=== PATIENT | female | born 1965 ===

== ENCOUNTER 2020-12-22 08:11 | Outpatient (REF) | payer OTHER, SELFPAY ==
[2020-12-22 09:13] LABS: Hematocrit 47.3 % (37-47); Hemoglobin 15.1 g/dl (12.0-16.0); Mean Corpuscular HGB Conc 31.9 g/dl (31.0-35.0); Mean Corpuscular Hemoglobin 27.6 pg (27.0-33.0); Mean Corpuscular Volume 86.5 fL (80-98); Mean Platelet Volume 10.8 fL (9.4-12.3); Platelet Count 220 X10*3/uL (160-400); Red Blood Count 5.47 X10*6/uL (4.20-5.50); Red Cell Distribution Width 12.7 % (11.0-16.0); White Blood Count 4.5 X10*3/uL (4.8-10.8)
[2020-12-22 09:27] LABS: Alanine Aminotransferase 21 U/L (0-31); Albumin Level 4.2 g/dL (3.5-5.0); Alkaline Phosphatase 84 U/L (39-117); Anion Gap 12 (12-20); Aspartate Amino Transferase 21 U/L (5-31); Bilirubin Total 0.5 mg/dL (0.0-1.0); Blood Urea Nitrogen 15 mg/dL (9-16); Calcium 9.6 mg/dL (8.4-10.2); Carbon Dioxide 25 mmol/L (22-29); Chloride 108 mmol/L (96-108); Cholesterol 253 mg/dL; Estimated Glomerular Filt Rate > 60; Glucose Fasting 93 mg/dL (60-99); HDL Cholesterol 67 mg/dL; LDL Cholesterol Calculated 173 mg/dl; Potassium 4.6 mmol/L (3.3-5.1); Sodium 140 mmol/L (135-145); Total Protein 6.9 g/dL (6.5-8.0); Triglycerides 66 mg/dL
[2020-12-22 09:51] LABS: TSH reflex Free T4 0.95 uIU/mL (0.32-4.0)
== END 2020-12-22 08:12 | disposition home or self-care (01) ==
LOC: HO.LAB 08:11
PROVIDERS: PCP Physician Assistant; Visit Provider Physician Assistant
DX: E78.2 Mixed hyperlipidemia (principal); I10 Essential (primary) hypertension
CPT/HCPCS: 36415; 80053; 80061; 84443; 85027

== ENCOUNTER → 2021-01-15 07:58 | Outpatient (BNVA) | payer OTHER, SELFPAY | PROVIDERS: PCP Physician Assistant; Visit Provider Advanced Practice Midwife ==

== ENCOUNTER 2021-04-09 08:44 | Outpatient (REF) | payer OTHER, SELFPAY ==
--- NOTE | ~2021-04-09 | MM_ITS ---
EXAMINATION: MM SCREENING DIGITAL BREAST TOMOSYNTHESIS, BILATERAL CLINICAL INFORMATION: Screening. Asymptomatic. The lifetime risk of breast cancer based on the Tyrer-Cuzick Model is 5%. COMPARISON: Mammography: 12/31/2019, 09/21/2018, 05/06/2016 TECHNIQUE: Digital breast tomosynthesis is performed in both the craniocaudal and mediolateral oblique views along with computer-aided detection (CAD). Synthesized 2D images are generated from the tomosynthesis. FINDINGS: There are scattered areas of fibroglandular density (ACR BI-RADS breast composition Category b). There are no significant masses, abnormal calcifications, or other abnormalities. MM/MM tomosynthesis screening BI IMPRESSION: No mammographic evidence of malignancy. ASSESSMENT: BI-RADS 1: Negative RECOMMENDATION: Routine annual mammography screening. This patient's information was entered into a reminder system with a target due date for their next mammogram.
== END 2021-04-09 08:45 | disposition home or self-care (01) ==
LOC: HO.MAMMO 08:44
PROVIDERS: Visit Provider Physician Assistant
DX: Z12.31 Encounter for screening mammogram for malignant neoplasm of breast (principal)
CPT/HCPCS: 77063; 77067

== ENCOUNTER → 2022-05-07 13:36 | Outpatient (BNVA) | payer OTHER, SELFPAY | PROVIDERS: PCP Physician Assistant; Visit Provider Advanced Practice Midwife | DX: Z13.89 Encounter for screening for other disorder (principal) ==

== ENCOUNTER 2022-05-23 13:38 | Outpatient (REF) | payer OTHER, SELFPAY ==
--- NOTE | ~2022-05-23 | MM_ITS ---
EXAMINATION: MM DIAGNOSTIC DIGITAL BREAST TOMOSYNTHESIS, BILATERAL TARGETED LEFT BREAST ULTRASOUND CLINICAL INFORMATION: A lump felt by ordering physician in the left breast 5 o'clock position. The lifetime risk of breast cancer based on the Tyrer-Cuzick Model is 5.8%. COMPARISON: Mammography: 04/09/2021 and studies dating back to 10/13/2013. TECHNIQUE: Digital breast tomosynthesis is performed in both the craniocaudal and mediolateral oblique views along with computer-aided detection (CAD). Synthesized 2D images are generated from the tomosynthesis. Targeted left breast ultrasound. FINDINGS: There are scattered areas of fibroglandular density (ACR BI-RADS breast composition Category b). There are no significant masses, abnormal calcifications, or other abnormalities. Targeted left breast ultrasound did not demonstrate any abnormal cystic or solid mass. No region of abnormal distal sound shadowing was appreciated. No edematous change within the parenchyma noted. Results are discussed with the patient at time of visit. MM/MM tomosynthesis diagnostic BI IMPRESSION: No specific mammographic or ultrasound findings to suggest malignancy. ASSESSMENT: BI-RADS 1: Negative. RECOMMENDATION: Routine annual mammography screening. This patient's information was entered into a reminder system with a target due date for their next mammogram.
== END 2022-05-23 13:39 | disposition home or self-care (01) ==
LOC: HO.MAMMO 13:38
PROVIDERS: Visit Provider Advanced Practice Midwife
DX: N63.23 Unspecified lump in the left breast, lower outer quadrant (principal)
CPT/HCPCS: 76642; 77062; 77066

== ENCOUNTER 2022-10-04 13:40 | Outpatient (REF) | payer OTHER, SELFPAY ==
[2022-10-05 10:29] LABS: BV Int Neg Control Negative (Negative); BV Int Pos Control Positive (Positive)
== END 2022-10-04 13:41 | disposition home or self-care (01) ==
LOC: HO.LNP 13:40
PROVIDERS: PCP Physician Assistant; Visit Provider Advanced Practice Midwife
DX: N89.8 Other specified noninflammatory disorders of vagina (principal)
CPT/HCPCS: 87480; 87510; 87660

== ENCOUNTER 2022-12-09 11:23 | Outpatient (AMB) | payer OTHER, SELFPAY ==
--- NOTE | 2022-12-09 11:29 | A.OFFPC_ITS ---
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 Accompanied by: Self / Same As Patient Allergies carrot [CARROT] Allergy (Unknown, Verified 12/09/22 11:49) DIFF BREATHING, ITCHY, THROAT FEELS TIGHT Medication List - Last Reconciled 12/09/22 by Virgilio Carver PA-C cholecalciferol (vitamin D3) 25 mcg PO DAILY magnesium oxide 400 mg PO DAILY Tobacco use date assessed: 12/09/22 Dental Screening Dental Screen Date: 12/09/22 Did you have a dental visit in the last 12 months?: Yes Did you have a dental problem in the last 6 months where you did not have access to dental care?: No Was dental information given to patient?: Patient has dentist HPI Annual PE HPI Details patient is a 57-year-old female here today for annual physical.? Patient's past medical history significant for hyperlipidemia. Concern--> reports having a skin lump over her upper back over the last couple of years. She denies any drainage or pain. She would like removal of this skin lump. .. HLD : HAs been working ?on reducing her high cholesterol foods in being more physically active.? Patient interested in starting medication will like to continue lifestyle modifications to reduce her cholesterol. ? Mammogram:? done in May 2022, BI-RADS 1 ?colonoscopy:? done in 2015 which was normal repeat in 10 years Vaccine: Needs Tdap though declines,? needs shingles though declines, needs COVID vaccine though declines Laboratory Tests 12/22/20 08:27 Cholesterol 253 LDL Cholesterol, C alc 173 .. PFSH Medical History Myopia Surgical History H/O: hysterectomy Hx of section Family History Father Lung cancer Son Osteosarcoma Social History (Updated 12/09/22 @ 11:52 by Virgilio Carver PA-C) Household Members: Spouse Housing: Apartment Alcohol intake: never Patient Tobacco Use Status: Never used Tobacco e-Cigarette/Vaping Use: Never Used Second Hand Smoke Exposure: No service: No Current occupational status: employed Current occupation: [employer] Sexual orientation: Straight/Heterosexual Gender identity: Female Cognitive needs: No Hearing needs: No Vision needs: Yes Questionnaire PHQ-9 Over the last 2 weeks, how often have you been bothered by any of the following problems? 1. Little interest or pleasure in doing things: not at all 2. Feeling down, depressed, or hopeless: not at all 3. Trouble falling or staying asleep, or sleeping too much: not at all 4. Feeling tired or having little energy: not at all 5. Poor appetite or overeating: not at all 6. Feeling bad about yourself - or that you are a failure or have let yourself or your family down: not at all 7. Trouble concentrating on things, such as reading the newspaper or watching television: not at all 8. Moving or speaking so slowly that other people could have noticed. Or the opposite - being so fidgety or restless that you have been moving around a lot more than usual: not at all 9. Thoughts that you would be better off or of hurting yourself in some way: not at all Total score: 0 Depression Screening Interpretation: Negative 68482 - PHQ-9 Billing: Yes Source: Developed by Drs. Kirill Bonner, Giselle Greer, Sebastian mims nd colleagues, with an educational chandana from [employer]. Thrive Questionnaire Date Thrive assessed: 12/09/22 I am a: Patient What is your living situation today?: I have a steady place to live Within the past 12 months, did the food you bought not last and you didn't have the money to get more?: Never true Within the past 12 months, did you worry whether your food would run out before you got money to buy more?: Never true Do you have trouble paying for medicines?: No Do you have trouble getting transportation to medical appointments?: No Do you have trouble paying your heating and electricity bill?: No Do you have trouble taking care of your child, family member or friend?: No Do you have trouble with day-to-day activities such as bathing, preparing meals, shopping, managing finances, etc.?: No Are you currently unemployed and looking for a job?: No Are you interested in more education?: No Please select the resources that you would like help with: None Currently or been in a relationship where the following occur: no concerns reported RUBY-7 AMB Questionnaire RUBY-7 Date RUBY - 7 assessed: 12/09/22 Feeling nervous, anxious, or on edge: 0 = Not at all Not being able to stop or control worryin = Not at all Worrying too much about different things: 0 = Not at all Trouble relaxin = Not at all Being so restless that it is hard to sit still: 0 = Not at all Becoming easily annoyed or irritable: 0 = Not at all Feeling afraid as if something awful might happen: 0 = Not at all Total RUBY-7 score (0-4 normal; 5-9 mild; 10-14 moderate; 15-21 severe): 0 Source: Developed by Drs. Kirill Bonner, Giselle Greer, Sebastian Terrell and colleagues, with an educational chandana from [employer]. RUBY-7 Assessment Billing RUBY-7 Assessment Tool: RUBY-7 Assessment 67559 Review of Systems Const Denies body aches, Denies chills, Denies excessive sweating, Denies fatigue, Denies fever(s) and Denies headache(s) Eyes Denies blurry vision ENT Denies dysphagia, Denies vertigo, Denies dizziness, Denies headache(s), Denies hearing loss and Denies tinnitus Card Denies chest pain, Denies chest pain with activity, Denies syncope, Denies irregular heart rhythm and Denies dyspnea Resp Denies chest congestion, Denies cough, Denies hemoptysis, Denies dyspnea and Denies wheezing GI Denies abdominal pain, Denies melena, Denies hematochezia, Denies coffee ground emesis, Denies dysphagia, Denies diarrhea, Denies nausea and Denies vomiting Denies urinary frequency, Denies dysuria, Denies urinary hesitancy and Denies urinary urgency Musc Denies arthralgias, Denies limited range of motion, Denies muscle cramps and Denies muscle weakness Skin/Breast Denies rash and Denies skin ulcer Neuro Denies Abnormal speech present, Denies confusion, Denies vertigo, Denies dizziness, Denies syncope, Denies headache(s), Denies memory loss and Denies seizure-like activity Psych Denies anxiety, Denies confusion, Denies depression, Denies memory loss, Denies panic attacks and Denies paranoia Endo Denies excessive sweating, Denies fatigue, Denies flushing, Denies polydipsia and Denies polyuria Aller/Immun Denies wheezing Physical exam (Primary Care) Vital Signs: Last Vital Signs Pulse 66 12/09/22 11:37 BP 122/70 12/09/22 11:37 Pulse Ox 97 12/09/22 11:37 BMI result Body Mass Index 28.9 Tobacco/Smoking Status: Tobacco use Status Tobacco use date assessed 12/09/22 12/09/22 11:32 Patient Tobacco Use Status Never used Tobacco 12/09/22 11:32 e-Cigarette/Vaping Use Never Used 12/09/22 11:32 PHQ-9: PHQ-9 Score PHQ-9: Total score 0 12/09/22 11:41 Depression Screening Interpretation: Negative Thrive Assessment: Date of Thrive Assessment Date Thrive assessed 12/09/22 12/09/22 11:32 Currently or been in a relationship where the following occur: no concerns reported Const General: cooperative, comfortable, no acute distress, alert and awake; No confusion Orientation/consciousness: oriented to person, oriented to place, patient oriented x3 and No confusion HENMT Head: Yes normocephalic Ears: external ears normal and TM's normal bilaterally Face and sinus: No sinus tenderness Mouth: Normal oral and palatal mucosa present and tongue normal Teeth and gingiva: dentition normal and gingiva normal Throat: Yes posterior oropharynx normal, Yes tonsils normal and Yes uvula midline Eyes Conjunctivae: conjunctivae normal Sclerae: sclerae normal Pupils: Equal, round and reactive pupils present EOM: EOMs intact bilaterally Direct Ophthalmoscopy: No no photophobia Neck Neck: Yes no lymphadenopathy, No tender and Yes no JVD Thyroid: Thyroid normal Carotids: no bruits Neck images: 1. SUBCUTANEOUS SKIN LESION THE AREA OUTLINED Chest Chest palpation & inspection: no tenderness Resp Effort & Inspection: normal respiratory effort, no audible wheezes, not labored and no stridor Auscultation: no crackles, no rales, no rhonchi and no wheezes Cardio Jugular venous distension: no JVD Rate: regular rate, not bradycardic and not tachycardic Rhythm: regular rhythm Bruits: no carotid bruits Peripheral pulses: Peripheral pulses 2+ throughout GI Inspection: Yes normal to inspection, No abdominal wall ecchymosis and No visible herniation Palpation (GI): Soft to palpation, nontender, no guarding, not rigid and No hepatosplenomegaly present Auscultation: normoactive bowel sounds General: Yes no CVA tenderness Back/Spine/Pelvis Back: no CVA tenderness and No back tenderness Cervical Spine: cervical ROM normal Thoracic/Lumbar Spine: thoracic and lumbar spine normal to inspection, straight leg raise negative bilaterally, No thoraco-lumbar ROM limited and No lumbar spinal tenderness Skin Lesions: no lesions Rashes: no rashes Wounds: no wounds Neuro General: oriented to person, oriented to place, patient oriented x3, CN's II-XI intact bilaterally and No confusion Cranial nerves: Yes Equal, round and reactive pupils present and Yes Normal a ccommodation reflex present Cognition (Neuro): normal cognition Speech: No Abnormal speech present Gait exam (Neuro): Normal gait present Motor exam (neuro): 5/5 motor strength present throughout Extrem Right upper extremity: full ROM; no cyanosis Left upper extremity: full ROM; no cyanosis Right lower extremity: no edema Left lower extremity: no edema Psych Appearance: grossly normal Mental Status: mental status grossly normal Affect: normal affect Attitude: cooperative Thought process: Normal thought process present Assessment and Plan Assessment & Plan (1) Annual physical exam: Code(s): Z00.00 - Encounter for general adult medical examination without abnormal findings (2) HLD (hyperlipidemia): Code(s): E78.5 - Hyperlipidemia, unspecified Qualifiers: Hyperlipidemia type: mixed hyperlipidemia Qualified Code(s): E78.2 - Mixed hyperlipidemia Plan: Patient has a history of high cholesterol. Not interested in starting med ication at this time. Continues to work on lifestyle modifications to reduce her high cholesterol. Continues to be very physically active (3) Dermatitis: Code(s): L30.9 - Dermatitis, unspecified Plan: Has noted skin dermatitis over her lb in the back for years every summer. She would like a cream to help reduce the inflammation and pain in her skin. (4) Subcutaneous cyst: Code(s): L72.9 - Follicular cyst of the skin and subcutaneous tissue, unspecified Plan: As above patient would like the cystic mass removed from her upper back. Will refer to general surgeon for evaluation and possible removal. (5) Screening for diabetes mellitus (DM): Code(s): Z13.1 - Encounter for screening for diabetes mellitus Orders: Orders Comprehensive [place]. Panel Fast Today Z13.1 - Encounter for screening for diabetes mellitus Lipid Panel Today E78.2 - Mixed hyperlipidemia Referrals General Surgery Referral L72.9 - Follicular cyst of the skin and subcutaneous tissue, unspecified Medications: New triamcinolone acetonide 0.5% 1 appl topical DAILY 30 days 15 grams 0RF L30.9 - Dermatitis, unspecified Coding Level of Care Code Est Pt Prev Care 40-64y(75702) Diagnoses Annual physical exam Z00.00 HLD (hyperlipidemia) E78.2 Hyperlipidemia type: mixed hyperlipidemia Dermatitis L30.9 Subcutaneous cyst L72.9 Screening for diabetes mellitus (DM) Z13.1 Additional Codes RUBY-7 Assessment Billing - RUBY-7 Assessment Tool: RUBY-7 Assessment [id number] ([id number])
[2022-12-09 11:37] VITALS: BP 122/70; PULSE 66; O2SAT 97; BMI 28.9
== END 2022-12-09 12:11 | disposition home or self-care (01) ==
PROVIDERS: Visit Provider Physician Assistant
DX: Z00.00 Encounter for general adult medical examination without abnormal findings (principal); E78.2 Mixed hyperlipidemia; L30.9 Dermatitis, unspecified; L72.9 Follicular cyst of the skin and subcutaneous tissue, unspecified; Z13.1 Encounter for screening for diabetes mellitus
CPT/HCPCS: 99396

== ENCOUNTER 2022-12-24 14:48 | Outpatient (AMB) | payer OTHER, SELFPAY ==
--- NOTE | 2022-12-24 14:52 | MHC.OFFVIS ---
Intake Vital Signs 12/24/22 14:58 Height 5 ft 2 in Weight 159 lb 2 oz BMI 29.1 BP 122/85 Blood Pressure Location Lt brachial Position Sitting Pulse 67 Intake Visit Reasons: subcutaneous cyst upper back Intake Note: Patient is seen in office for evaluation and treatment of an upper back cyst. 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 She denies any bleeding, discharge, pain, redness or other significant symptoms but does feel the lesion has slowly increased in size. She previously had a cyst removed from her right back which was benign. She is requesting excision of the current lesion. [facility] Medical History Myopia Surgical History H/O: hysterectomy Hx of section Family History Father Lung cancer Son Osteosarcoma Social History Household Members: Spouse Housing: Apartment Alcohol intake: never Patient Tobacco Use Status: Never used Tobacco e-Cigarette/Vaping Use: Never Used Second Hand Smoke Exposure: No service: No Current occupational status: employed Current occupation: [employer] Sexual orientation: Straight/Heterosexual Gender identity: Female Cognitive needs: No Hearing needs: No Vision needs: Yes Review of Systems Const All systems reviewed & are unremarkable except as noted in HPI and below Denies chills, Denies fever(s), Denies headache(s), Denies poor appetite and Denies weakness ENT Denies headache(s) Card Denies chest pain, Denies irregular heart rhythm, Denies palpitations and Denies dyspnea Resp Denies cough, Denies excessive phlegm production and Denies dyspnea GI Denies abdominal pain, Denies bloating, Denies change in bowel habits, Denies constipation, Denies heartburn, Denies diarrhea, Denies nausea and Denies vomiting Denies urinary frequency Musc Denies back pain, Denies muscle weakness and Denies numbness Skin/Breast Denies changing lesions and Denies unusual bruising Neuro Denies headache(s), Denies numbness, Denies paresthesias and Denies weakness Psych Denies anxiety and Denies depression Endo Denies palpitations Volodymyr/Lymph Denies lymphadenopathy Physical Exam Vital Signs: Last Vital Signs Pulse 67 12/24/22 14:58 BP 122/85 12/24/22 14:58 BMI result Body Mass Index 29.1 Const General: cooperative and no acute distress Nutritional Appearance: well nourished Orientation/consciousness: patient oriented x3 Limitations: no limitations HEENT Head: Yes normocephalic and Yes atraumatic Ears: hearing grossly normal bilaterally Resp Effort & Inspection: normal respiratory effort, no audible wheezes, no cough and no respiratory distress Cardio Jugular venous distension: no JVD GI Inspection: Yes normal to inspection Back/Spine/Pelvis Back/spine/pelvis image: 1. 8 mm round brown fibroma in the mid back as noted. No ulceration or bleeding identified. Margins are symmetrical. Skin Other: Warm, dry, no rash Neuro General: patient oriented x3 Extrem General: Yes no clubbing, cyanosis or edema Assessment & Plan Assessment & Plan (1) Fibroma of chest wall: Code(s): D21.3 - Benign neoplasm of connective and other soft tissue of thorax Plan 57-year-old female patient presenting with a brown fibrotic lesions suggestive of a fibroma in the upper mid back measuring approximately 8 mm in diameter. I recommended excision as a minor surgery under local anesthesia. After discussion of the procedure, risks, and alternatives, she consents to the surgery. Coding Level of Care Code New Pt Level 4 (50725) Diagnoses Fibroma of chest wall D21.3
[2022-12-24 14:58] VITALS: BP 122/85; PULSE 67; BMI 29.1
== END 2022-12-24 15:16 | disposition home or self-care (01) ==
PROVIDERS: PCP Physician Assistant; Visit Provider Surgery
DX: D21.3 Benign neoplasm of connective and other soft tissue of thorax (principal)
CPT/HCPCS: 99204

== ENCOUNTER → 2022-12-24 14:48 | Outpatient (BNVA) | payer OTHER, SELFPAY | PROVIDERS: PCP Physician Assistant; Visit Provider Surgery ==

== ENCOUNTER → 2023-02-07 08:20 | Outpatient (BNVA) | payer OTHER, SELFPAY | PROVIDERS: PCP Physician Assistant; Visit Provider Surgery ==

== ENCOUNTER 2023-03-04 12:28 | Outpatient (REF) | payer OTHER, SELFPAY ==
[2023-03-04 12:34] VITALS: BMI 28.3
[2023-03-04 12:35] VITALS: BP 156/94; PULSE 59; RESP 16; TEMP 36.1; O2SAT 100
[2023-03-04 13:25] VITALS: BP 146/81; PULSE 60; RESP 16; O2SAT 98
--- NOTE | 2023-03-04 13:31 | P.OP_ITS ---
Operative Note Operative Note Date of Service: 03/04/23 Narrative: Preoperative diagnosis: Fibroma upper mid back Postoperative diagnosis: Same Procedure: Excision of fibroma upper mid back Surgeon: Gage Duque MD Utility Mechanic Supervisor: None Anesthesia: Sensorcaine 0.5% with epinephrine Indications for procedure: 57-year-old female patient presenting with a dark crusted lesion in the upper mid back measuring approximately 1.5 cm in diameter. Operative findings: 1.5 cm fibroma of the left upper back Specimen: Fibroma mid upper back Estimated blood loss: 2 mL Complications: None Procedure details: Patient was brought to the minor surgery suite placed in a prone position. The site of surgery was confirmed by the patient in the mid back. After assuring informed consent the skin was prepped with Betadine and draped in a sterile fashion. Local anesthesia was then infiltrated circumferentially around the lesion. Elliptical incision oriented longitudinally was then created. The incision was carried down to the subcutaneous tissue and around the skin lesion. The lesion was passed off the table and sent to pathology for further examination. Hemostasis was assured using light pressure. Dermis was then reapproximated using interrupted 4-0 Polysorb sutures. Skin was then closed using interrupted 4-0 nylon sutures. Sterile dressings consisting of 2 x 2 gauze, Tegaderm were then applied. The patient tolerated the procedure well. She was discharged to home in stable condition.
== END 2023-03-04 12:29 | disposition home or self-care (01) ==
LOC: HO.MS 12:28
PROVIDERS: PCP Physician Assistant; Visit Provider Surgery
PROC: (CPT 11402; principal; 2023-03-04 13:00)
DX: D23.5 Other benign neoplasm of skin of trunk (principal)
CPT/HCPCS: 11402; 88305; 88341; 88342

== ENCOUNTER → 2023-03-04 12:28 | Outpatient (BNV) | payer OTHER, SELFPAY | PROVIDERS: PCP Physician Assistant; Visit Provider Surgery | DX: D21.6 Benign neoplasm of connective and other soft tissue of trunk, unspecified (principal) | CPT/HCPCS: 21930 ==

== ENCOUNTER 2023-03-13 13:48 | Outpatient (AMB) | payer OTHER, SELFPAY ==
--- NOTE | 2023-03-13 14:04 | A.OFFVIS_ITS ---
Intake Vital Signs 3 03/13/23 14:08 Height 5 ft 2 in Weight 161 lb 2 oz BMI 29.5 BP 151/68 H Blood Pressure Location Lt brachial Position Sitting Pulse 69 Intake Visit Reasons: excision fibroadenoma upper mid back Intake Note: Patient is seen in office for post op assessment post excision of fibroadenoma upper mid back. 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 She tolerated the procedure well and denies any ongoing symptoms. She returns today for suture removal. [facility] Medical History (Updated 12/24/22 @ 15:06 by Gage Duque MD) Myopia Surgical History History of excision of mass (03/04/23) Hx of section H/O: hysterectomy Family History Father Lung cancer Son Osteosarcoma Social History Household Members: Spouse Housing: Apartment Alcohol intake: never Patient Tobacco Use Status: Never used Tobacco e-Cigarette/Vaping Use: Never Used Second Hand Smoke Exposure: No service: No Current occupational status: employed Current occupation: [employer] Sexual orientation: Straight/Heterosexual Gender identity: Female Cognitive needs: No Hearing needs: No Vision needs: Yes Physical Exam Vital Signs: Last Vital Signs Pulse 69 03/13/23 14:08 BP 151/68 H 03/13/23 14:08 BMI result Body Mass Index 29.5 Const General: cooperative and no acute distress Back/Spine/Pelvis Other: Excision site in the upper mid back is clean, dry, and intact without redness or discharge. Sutures removed the wounds found to be well healed. Back/spine/pelvis image: 2 1. Excision site upper back Assessment & Plan Assessment & Plan (1) Fibroma of chest wall: Code(s): D21.3 - Benign neoplasm of connective and other soft tissue of thorax Plan 57-year-old female patient returning 1 week following excision of a dermatofibroma of the back. She tolerated the procedure well the wounds are healing nicely. She should follow up as needed. Coding Level of Care Code Global (88256) Diagnoses Fibroma of chest wall D21.3
[2023-03-13 14:08] VITALS: BP 151/68; PULSE 69; BMI 29.5
== END 2023-03-13 14:12 | disposition home or self-care (01) ==
PROVIDERS: PCP Physician Assistant; Visit Provider Surgery
DX: D21.3 Benign neoplasm of connective and other soft tissue of thorax (principal)
CPT/HCPCS: 99024

== ENCOUNTER → 2023-03-13 13:48 | Outpatient (BNVA) | payer OTHER, SELFPAY | PROVIDERS: PCP Physician Assistant; Visit Provider Surgery ==

== ENCOUNTER 2023-05-09 11:26 | Outpatient (AMB) | payer OTHER, SELFPAY ==
--- NOTE | 2023-05-09 11:37 | MHC.OFFVIS ---
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 She is doing well with no concerns. Attempting to eat a healthy diet with calcium and vitamin D and stays active with exercise. Currently sexually active. Denies any vaginal dryness or irritation. STI testing offered; she accepts. Last mammogram; 2019. Colonoscopy is UTD. Denies any family history of breast, ovarian or colon cancer. PFSH Medical History Myopia Surgical History History of excision of mass (03/04/23) Hx of section H/O: hysterectomy Family History Father Lung cancer Son Osteosarcoma Social History Household Members: Spouse Housing: Apartment Alcohol intake: never Patient Tobacco Use Status: Never used Tobacco e-Cigarette/Vaping Use: Never Used Second Hand Smoke Exposure: No service: No Current occupational status: employed Current occupation: [employer] Sexual orientation: Straight/Heterosexual Gender identity: Female Cognitive needs: No Hearing needs: No Vision needs: Yes Female Reproductive History Menstrual Menopause type: surgical Total pregnancies: 3 Full term: 2 Number of Living Children: 2 Date of last pap smear: 01/07/08 Date of Mammogram: 05/23/22 Review of Systems Const All systems reviewed & are unremarkable except as noted in HPI and below Reports as per HPI Eyes Reports no additional complaints ENT Reports no additional complaints Card Reports no additional complaints Resp Reports no additional complaints GI Reports as per HPI and Reports no additional complaints Reports as per HPI Musc Reports no additional complaints Skin/Breast Reports as per HPI Neuro Reports no additional complaints Psych Reports no additional complaints Endo Reports no additional complaints Volodymyr/Lymph Reports no additional complaints Aller/Immun Reports no additional complaints Physical Exam Vital Signs: Last Vital Signs BP 118/64 05/09/23 11:39 BMI result Body Mass Index 29.3 Const General: cooperative, healthy appearing, no acute distress, well developed and alert Orientation/consciousness: patient oriented x3 HEENT Head: Yes normal to inspection Eyes General: appearance normal, both eyes and all related structures Neck Neck: Yes normal visual inspection Thyroid: Thyroid normal Chest Chest palpation & inspection: normal inspection of the chest and other (no puckering, dimpling, peau de orange, retraction, discharge, masses) Breast/axilla inspection: normal inspection of the breasts Breast/axilla palpation: normal palpation of the breasts Resp Effort & Inspection: normal respiratory effort GI Inspection: Yes normal to inspection Palpation (GI): Soft to palpation Rectal Exam - Female: deferred General: Yes bladder normal to palpation External Female Exam: normal external appearance and normal appearance of the urethra Speculum Exam - Vagina: normal appearance of the vagina, normal vaginal discharge and vagina atrophic Speculum Exam - Cervix: Cervix absent (Vaginal cuff no lesions or nodules) Bimanual exam- vagina & uterus: normal bimanual exam, bladder normal to palpation and uterus absent Bimanual Exam- Adnexa, other: no masses Skin General skin exam: no rashes or lesions noted Rashes: no rashes Neuro General: patient oriented x3 Cognition (Neuro): normal cognition Extrem General: Yes normal to inspection Psych Attitude: cooperative Thought process: Normal thought process present Assessment & Plan Assessment & Plan (1) Encounter for well woman exam with routine gynecological exam: Code(s): Z01.419 - Encounter for gynecological examination (general) (routine) without abnormal findings Plan Discussed: Current recommendations for pap smears per ASCCP guidelines. Breast awareness, periodic self breast exams and yearly mammogram. Maintain a healthy lifestyle, well balanced diet including Calcium 1,200 mg and Vitamin D 600 IU daily, and routine exercise. Use of condoms for STI if indicated. Discussed the use of vaginal moisturizers including Replens and also lubricants options available. Consider flaxseed oil 1200 mg daily may alternate with her [place] 3's. Contact the office with any postmenopausal bleeding. All of her questions and concerns were addressed to the best of my ability. RTO in 1 year for annual compliance spec exam. This note is constructed using voice recognition software. While every effort has been made to ensure accuracy, hosting engineer errors may have been included. Orders: Orders MM tomosynthesis screening BI Today Z12.31 - Encounter for screening mammogram for malignant neoplasm of breast Coding Level of Care Code Est Pt Prev Care 40-64y(27862) Diagnoses Encounter for well woman exam with routine gynecological exam Z01.419
[2023-05-09 11:39] VITALS: BP 118/64; BMI 29.3
== END 2023-05-09 14:36 | disposition home or self-care (01) ==
LOC: HO.HWS 11:26
PROVIDERS: PCP Physician Assistant; Visit Provider Advanced Practice Midwife
DX: Z01.419 Encounter for gynecological examination (general) (routine) without abnormal findings (principal)
CPT/HCPCS: 99396

== ENCOUNTER → 2023-05-09 11:26 | Outpatient (BNVA) | payer OTHER, SELFPAY | PROVIDERS: PCP Physician Assistant; Visit Provider Advanced Practice Midwife ==

== ENCOUNTER 2023-09-16 15:01 | Outpatient (AMB) | payer OTHER, SELFPAY ==
--- NOTE | 2023-09-16 15:11 | MHC.PC.OV ---
Vital Signs 09/16/23 15:13 Height 5 ft 2 in Weight 157 lb 4 oz BMI 28.8 BP 122/70 Blood Pressure Location Lt brachial Position Sitting Pulse 76 Pulse Source Pulse Oximeter Pulse Oximetry (%) 97 Oxygen Delivery Method Room Air Intake Visit Reasons: Allergies, itchy eyes Intake Note: Patient is here to follow up on allergies and itchy eyes. OTC Benadryl and eye drops not helping Automotive Parts Interpreter Required: No Silver Miner Blasting: Not Required per policy Accompanied by: Self / Same As Patient Allergies carrot [CARROT] Allergy (Unknown, Verified 09/16/23 15:13) DIFF BREATHING, ITCHY, THROAT FEELS TIGHT Tobacco use date assessed: 09/16/23 Dental Screening Dental Screen Date: 09/16/23 Did you have a dental visit in the last 12 months?: Yes Did you have a dental problem in the last 6 months where you did not have access to dental care?: No Was dental information given to patient?: Patient has dentist HPI Allergies, itchy eyes HPI Details Patient is a 50-year-old female here today for problem visit. She reports over last few weeks having itchy eyes, nasal congestion, itchy throat and sneezing. She does admit to having the symptoms every year around this time. She has been using eyedrops that have not been helpful. She uses Benadryl as well though has not found any significant relief. 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 1. Little interest or pleasure in doing things: not at all 2. Feeling down, depressed, or hopeless: not at all 3. Trouble falling or staying asleep, or sleeping too much: not at all 4. Feeling tired or having little energy: not at all 5. Poor appetite or overeating: not at all 6. Feeling bad about yourself - or that you are a failure or have let yourself or your family down: not at all 7. Trouble concentrating on things, such as reading the newspaper or watching television: not at all 8. Moving or speaking so slowly that other people could have noticed. Or the opposite - being so fidgety or restless that you have been moving around a lot more than usual: not at all 9. Thoughts that you would be better off or of hurting yourself in some way: not at all Total score: 0 Depression Screening Interpretation: Negative Depression Screening Done: Yes 35751 - PHQ-9 Billing: Yes Source: Developed by Drs. Kirill Bonner, Giselle Greer, Sebastian Terrell and colleagues, with an educational chandana from [employer]. Thrive Questionnaire Date Thrive assessed: 09/16/23 I am a: Patient What is your living situation today?: I have a steady place to live Within the past 12 months, did the food you bought not last and you didn't have the money to get more?: Never true Within the past 12 months, did you worry whether your food would run out before you got money to buy more?: Never true Do you have trouble paying for medicines?: No Do you have trouble getting transportation to medical appointments?: No Do you have trouble paying your heating and electricity bill?: No Do you have trouble taking care of your child, family member or friend?: No Do you have trouble with day-to-day activities such as bathing, preparing meals, shopping, managing finances, etc.?: No Are you currently unemployed and looking for a job?: No Are you interested in more education?: No Currently or been in a relationship where the following occur: no concerns reported THRIVE Score: 0 AUDIT C Alcohol Use Questionnaire (AUDIT-C) 1. How often do you have a drink containing alcohol?: Never Total Score: 0 RUBY-7 AMB Questionnaire RUBY-7 Date RUBY - 7 assessed: 09/16/23 Feeling nervous, anxious, or on edge: 0 = Not at all Not being able to stop or control worryin = Not at all Worrying too much about different things: 0 = Not at all Trouble relaxin = Not at all Being so restless that it is hard to sit still: 0 = Not at all Becoming easily annoyed or irritable: 0 = Not at all Feeling afraid as if something awful might happen: 0 = Not at all Total RUBY-7 score (0-4 normal; 5-9 mild; 10-14 moderate; 15-21 severe): 0 Source: Developed by Drs. Kirill Bonner, Giselle Greer, Sebastian Terrell and colleagues, with an educational chandana from [employer]. RUBY-7 Assessment Billing RUBY-7 Assessment Tool: RUBY-7 Assessment 94913 Review of Systems Const Denies headache(s) Eyes Denies loss of vision ENT Denies vertigo, Denies dizziness, Denies headache(s), Reports sinus pressure and Denies sore throat Card Denies chest pain, Denies leg edema and Denies lightheadedness Resp Denies cough, Denies hemoptysis and Denies wheezing GI Denies abdominal pain, Denies melena, Denies constipation, Denies diarrhea and Denies vomiting Denies urinary frequency, Denies dysuria and Denies urinary urgency Musc Denies arthralgias, Denies joint swelling, Denies numbness and Denies tingling Neuro Denies Abnormal speech present, Denies behavioral changes, Denies vertigo, Denies dizziness, Denies headache(s), Denies loss of vision, Denies memory loss, Denies numbness and Denies tingling Psych Denies anxiety, Denies behavioral changes, Denies depression, Denies memory loss and Denies panic attacks Volodymyr/Lymph Denies easy bleeding and Denies easy bruising Aller/Immun Denies wheezing Physical exam (Primary Care) Vital Signs: Last Vital Signs Pulse 76 09/16/23 15:13 BP 122/70 09/16/23 15:13 Pulse Ox 97 09/16/23 15:13 Oxygen Delivery Method Room Air 09/16/23 15:13 BMI result Body Mass Index 28.8 Tobacco/Smoking Status: Tobacco use Status Tobacco use date assessed 09/16/23 09/16/23 15:18 Patient Tobacco Use Status Never used Tobacco 09/16/23 15:18 e-Cigarette/Vaping Use Never Used 09/16/23 15:18 PHQ-9: PHQ-9 Score PHQ-9: Total score 0 09/16/23 15:18 Depression Screening Interpretation: Negative Thrive Assessment: Date of Thrive Assessment Date Thrive assessed 09/16/23 09/16/23 15:18 Currently or been in a relationship where the following occur: no concerns reported Const General: healthy appearing, no acute distress, alert and awake Nutritional Appearance: well nourished Orientation/consciousness: oriented to person, oriented to place and oriented to time HENMT Ears: TM's normal bilaterally General nose exam: Normal nasal mucous membranes and turbinates present Eyes Conjunctivae: conjunctivae normal Sclerae: sclerae normal Pupils: Equal, round and reactive pupils present Neck Neck: Yes no lymphadenopathy and Yes no JVD Thyroid: Thyroid normal Carotids: no bruits Resp Effort & Inspection: normal respiratory effort and not tachypneic Auscultation: no crackles, no rales, no rhonchi and no wheezes Cardio Rate: regular rate Rhythm: regular rhythm Heart sounds: no murmurs and normal S1 and S2 GI Palpation (GI): Soft to palpation, nontender, no hepatomegaly and no splenomegaly Auscultation: normal bowel sounds Skin General skin exam: no rashes or lesions noted and dry skin Neuro General: oriented to person, oriented to place and oriented to time Cranial nerves: Yes Equal, round and reactive pupils present Speech: No Abnormal speech present Gait exam (Neuro): Normal gait present Motor exam (neuro): no tremor noted Extrem Right upper extremity: full ROM Left upper extremity: full ROM Right lower extremity: full ROM; no edema Left lower extremity: full ROM; no edema Psych Mental Status: mental status grossly normal Speech and movement: Normal speech and movement present Affect: normal affect Attitude: cooperative Thought process: Normal thought process present Assessment and Plan Assessment & Plan (1) Allergic conjunctivitis: Code(s): H10.10 - Acute atopic conjunctivitis, unspecified eye Qualifiers: Laterality: bilateral Qualified Code(s): H10.13 - Acute atopic conjunctivitis, bilateral Plan: Patient is suffering with allergy symptoms most consistent with allergic conjunctivitis. Advised on allergy eye drops and daily antihistamine therapy. Medications: New olopatadine 0.2% (Pataday Once Daily Relief) 1 drp ophthalmic (eye) DAILY 15 days 2.5 mL 0RF H10.13 - Acute atopic conjunctivitis, bilateral loratadine 10 mg PO .nightly 30 days 30 tabs 1RF H10.13 - Acute atopic conjunctivitis, bilateral Coding Level of Care Code Est Pt Level 3 (36332) Diagnoses Allergic conjunctivitis of both eyes H10.13 Laterality: bilateral Additional Codes RUBY-7 Assessment Billing - RUBY-7 Assessment Tool: RUBY-7 Assessment 93250 ([id number])
[2023-09-16 15:13] VITALS: BP 122/70; PULSE 76; O2SAT 97; BMI 28.8
== END 2023-09-16 15:46 | disposition home or self-care (01) ==
PROVIDERS: PCP Physician Assistant; Visit Provider Physician Assistant
DX: H10.13 Acute atopic conjunctivitis, bilateral (principal)
CPT/HCPCS: 99213

== ENCOUNTER 2024-03-24 08:12 | Outpatient (AMB) | payer OTHER, SELFPAY ==
--- NOTE | 2024-03-24 08:24 | A.OFFPC_ITS ---
Vital Signs 03/24/24 08:25 Height 5 ft 2 in Weight 155 lb 8 oz BMI 28.4 BP 130/68 Blood Pressure Location Lt brachial Position Sitting Pulse 62 Pulse Source Pulse Oximeter Pulse Oximetry (%) 97 Oxygen Delivery Method Room Air Intake Visit Reasons: Annual PE Intake Note: Patient is here today for a physical. Complaint of rash at the back of right ear. Pt decline flu shot today. Cellophane Worker Required: No Scientific Laboratory Supervisor: Not Required per policy Accompanied by: Self / Same As Patient Allergies carrot [CARROT] Allergy (Unknown, Verified 03/24/24 08:54) DIFF BREATHING, ITCHY, THROAT FEELS TIGHT Medication List - Last Reconciled 03/24/24 by Virgilio Carver PA-C cholecalciferol (vitamin D3) 25 mcg PO DAILY clotrimazole-betamethasone 1-0.05 % 1 appl topical BID 30 days loratadine 10 mg PO .nightly 30 days magnesium oxide 400 mg PO DAILY olopatadine 0.2% (Pataday Once Daily Relief) 1 drp ophthalmic (eye) DAILY 15 days triamcinolone acetonide 0.5% 1 appl topical DAILY 30 days Tobacco use date assessed: 03/24/24 Dental Screening Dental Screen Date: 09/16/23 HPI Annual PE HPI Details patient is a 58-year-old female here today for annual physical.? Patient's past medical history significant for hyperlipidemia. Concern--> reports having a skin irritation and dryness behind her right ear. Has a this in the past usually during cold winter months. She reports triamcinolone was helpful .. HLD : HAs been working ?on reducing her high cholesterol foods in being more physically active.? Patient is not interested in starting medication will like to continue lifestyle modifications to reduce her cholesterol. ? Mammogram:? 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 done in 2016 which was normal repeat in 10 years Vaccine: Needs Tdap though declines,? needs shingles though declines, needs COVID vaccine though declines, needs flu though declines Laboratory Tests 12/22/20 08:27 Cholesterol 253 LDL Cholesterol, C alc 173 .. PFSH Medical History Myopia Surgical History History of excision of mass (03/04/23) Hx of section H/O: hysterectomy Family History Father Lung cancer Son Osteosarcoma Social History Household Members: Spouse Housing: Apartment Alcohol intake: never Patient Tobacco Use Status: Never used Tobacco e-Cigarette/Vaping Use: Never Used Second Hand Smoke Exposure: No service: No Current occupational status: employed Current occupation: [employer] Sexual orientation: Straight/Heterosexual Gender identity: Female Cognitive needs: No Hearing needs: No Vision needs: Yes Questionnaire PHQ-9 Over the last 2 weeks, how often have you been bothered by any of the following problems? 1. Little interest or pleasure in doing things: not at all 2. Feeling down, depressed, or hopeless: not at all 3. Trouble falling or staying asleep, or sleeping too much: not at all 4. Feeling tired or having little energy: not at all 5. Poor appetite or overeating: not at all 6. Feeling bad about yourself - or that you are a failure or have let yourself or your family down: not at all 7. Trouble concentrating on things, such as reading the newspaper or watching television: not at all 8. Moving or speaking so slowly that other people could have noticed. Or the opposite - being so fidgety or restless that you have been moving around a lot more than usual: not at all 9. Thoughts that you would be better off or of hurting yourself in some way: not at all Total score: 0 Depression Screening Interpretation: Negative Depression Screening Done: Yes 74173 - PHQ-9 Billing: Yes Source: Developed by Drs. Kirill Bonner, Giselle Greer, Sebastian Terrell and colleagues, with an educational chandana from [employer]. Thrive Questionnaire Date Thrive assessed: 09/16/23 RUBY-7 AMB Questionnaire RUBY-7 Date RUBY - 7 assessed: 09/16/23 Source: Developed by Drs. Kirill Bonner, Giselle Greer, Sebastian Terrell and colleagues, with an educational chandana from [employer]. Review of Systems Const Denies body aches, Denies chills, Denies excessive sweating, Denies fatigue, Denies fever(s) and Denies headache(s) Eyes Denies blurry vision ENT Denies dysphagia, Denies vertigo, Denies dizziness, Denies headache(s), Denies hearing loss and Denies tinnitus Card Denies chest pain, Denies chest pain with activity, Denies syncope, Denies irregular heart rhythm and Denies dyspnea Resp Denies chest congestion, Denies cough, Denies hemoptysis, Denies dyspnea and Denies wheezing GI Denies abdominal pain, Denies melena, Denies hematochezia, Denies coffee ground emesis, Denies dysphagia, Denies diarrhea, Denies nausea and Denies vomiting Denies urinary frequency, Denies dysuria, Denies urinary hesitancy and Denies urinary urgency Musc Denies arthralgias, Denies limited range of motion, Denies muscle cramps and Denies muscle weakness Skin/Breast Denies rash and Denies skin ulcer Neuro Denies Abnormal speech present, Denies confusion, Denies vertigo, Denies dizziness, Denies syncope, Denies headache(s), Denies memory loss and Denies seizure-like activity Psych Denies anxiety, Denies confusion, Denies depression, Denies memory loss, Denies panic attacks and Denies paranoia Endo Denies excessive sweating, Denies fatigue, Denies flushing, Denies polydipsia and Denies polyuria Aller/Immun Denies wheezing Physical exam (Primary Care) Vital Signs: Last Vital Signs Pulse 62 03/24/24 08:25 BP 130/68 03/24/24 08:25 Pulse Ox 97 03/24/24 08:25 Oxygen Delivery Method Room Air 03/24/24 08:25 BMI result Body Mass Index 28.4 Tobacco/Smoking Status: Tobacco use Status Tobacco use date assessed 03/24/24 03/24/24 08:30 Patient Tobacco Use Status Never used Tobacco 03/24/24 08:30 e-Cigarette/Vaping Use Never Used 03/24/24 08:30 Depression Screening Interpretation: Negative Thrive Assessment: Date of Thrive Assessment Date Thrive assessed 09/16/23 03/24/24 08:30 Const General: cooperative, comfortable, no acute distress, alert and awake; No confusion Orientation/consciousness: oriented to person, oriented to place, patient oriented x3 and No confusion HENMT Head: Yes normocephalic Ears: external ears normal and TM's normal bilaterally Face and sinus: No sinus tenderness Mouth: Normal oral and palatal mucosa present and tongue normal Teeth and gingiva: dentition normal and gingiva normal Throat: Yes posterior oropharynx normal, Yes tonsils normal and Yes uvula midline Eyes Conjunctivae: conjunctivae normal Sclerae: sclerae normal Pupils: Equal, round and reactive pupils present EOM: EOMs intact bilaterally Direct Ophthalmoscopy: No no photophobia Neck Neck: Yes no lymphadenopathy, No tender and Yes no JVD Thyroid: Thyroid normal Carotids: no bruits Chest Chest palpation & inspection: no tenderness Resp Effort & Inspection: normal respiratory effort, no audible wheezes, not labored and no stridor Auscultation: no crackles, no rales, no rhonchi and no wheezes Cardio Jugular venous distension: no JVD Rate: regular rate, not bradycardic and not tachycardic Rhythm: regular rhythm Bruits: no carotid bruits Peripheral pulses: Peripheral pulses 2+ throughout GI Inspection: Yes normal to inspection, No abdominal wall ecchymosis and No visible herniation Palpation (GI): Soft to palpation, nontender, no guarding, not rigid and No hepatosplenomegaly present Auscultation: normoactive bowel sounds General: Yes no CVA tenderness Back/Spine/Pelvis Back: no CVA tenderness and No back tenderness Cervical Spine: cervical ROM normal Thoracic/Lumbar Spine: thoracic and lumbar spine normal to inspection, straight leg raise negative bilaterally, No thoraco-lumbar ROM limited and No lumbar spinal tenderness Skin Lesions: no lesions Rashes: no rashes Wounds: no wounds Neuro General: oriented to person, oriented to place, patient oriented x3, CN's II-XI intact bilaterally and No confusion Cranial nerves: Yes Equal, round and reactive pupils present and Yes Normal accommodation reflex present Cognition (Neuro): normal cognition Speech: No Abnormal speech present Gait exam (Neuro): Normal gait present Motor exam (neuro): 5/5 motor strength present throughout Extrem Right upper extremity: full ROM; no cyanosis Left upper extremity: full ROM; no cyanosis Right lower extremity: no edema Left lower extremity: no edema Psych Appearance: grossly normal Mental Status: mental status grossly normal Affect: normal affect Attitude: cooperative Thought process: Normal thought process present Coding Level of Care Code Est Pt Prev Care 40-64y(18037) Diagnoses Annual physical exam Z00.00 Mixed hyperlipidemia E78.2 Hyperlipidemia type: mixed hyperlipidemia Screening for diabetes mellitus (DM) Z13.1 Dermatitis L30.9 Additional Codes PHQ-9 - 63720 - PHQ-9 Billing: Yes ([id number]) Assessment & Plan Assessment & Plan (1) Annual physical exam: Code(s): Z00.00 - Encounter for general adult medical examination without abnormal findings Category: Medical Plan: As per HPI (2) HLD (hyperlipidemia): Code(s): E78.5 - Hyperlipidemia, unspecified Category: Medical Qualifiers: Hyperlipidemia type: mixed hyperlipidemia Qualified Code(s): E78.2 - Mixed hyperlipidemia Plan: Patient's most recent fasting lipid panel showing elevated total cholesterol and LDL. She does report having a family history of high cholesterol. She is not interested in medication will like to continue working on lifestyle and dietary modifications. Goal LDL is to be below 160 (3) Screening for diabetes mellitus (DM): Code(s): Z13.1 - Encounter for screening for diabetes mellitus Category: Medical Plan: As per HPI (4) Dermatitis: Code(s): L30.9 - Dermatitis, unspecified Category: Medical Plan: As per HPI has noted a skin irritation and dry skin behind her right ear. She reports triamcinolone has helped her in the past. Orders: Orders Complete Blood Count no Diff Today E78.2 - Mixed hyperlipidemia Comprehensive [place]. Panel Fast Today Z13.1 - Encounter for screening for diabetes mellitus Lipid Panel Today E78.2 - Mixed hyperlipidemia Medications: Refilled triamcinolone acetonide 0.5% 1 appl topical DAILY 15 grams 0RF 30 days L30.9 - Dermatitis, unspecified
[2024-03-24 08:25] VITALS: BP 130/68; PULSE 62; O2SAT 97; BMI 28.4
== END 2024-03-24 08:52 | disposition home or self-care (01) ==
PROVIDERS: PCP Physician Assistant; Visit Provider Physician Assistant
DX: Z00.00 Encounter for general adult medical examination without abnormal findings (principal); E78.2 Mixed hyperlipidemia; Z13.1 Encounter for screening for diabetes mellitus; L30.9 Dermatitis, unspecified

== ENCOUNTER → 2024-03-24 08:12 | Outpatient (BNVA) | payer OTHER, SELFPAY | PROVIDERS: PCP Physician Assistant; Visit Provider Physician Assistant | DX: Z00.00 Encounter for general adult medical examination without abnormal findings (principal); E78.2 Mixed hyperlipidemia; L30.9 Dermatitis, unspecified | CPT/HCPCS: 96127 ==

== ENCOUNTER 2024-04-29 07:24 | Outpatient (REF) | payer OTHER, SELFPAY ==
[2024-04-29 07:58] LABS: Hematocrit 44.2 % (37.0-47.0); Hemoglobin 14.3 g/dl (12.0-16.0); Mean Corpuscular HGB Conc 32.4 g/dl (31.0-35.0); Mean Corpuscular Hemoglobin 27.4 pg (27.0-33.0); Mean Corpuscular Volume 84.8 fL (80.0-98.0); Mean Platelet Volume 9.7 fL (9.4-12.3); Platelet Count 206 X10*3/uL (160-400); Red Blood Count 5.21 X10*6/uL (4.20-5.50); Red Cell Distribution Width 13.2 % (11.0-16.0); White Blood Count 4.6 X10*3/uL (4.8-10.8)
[2024-04-29 08:37] LABS: Alanine Aminotransferase 23 U/L (0-31); Albumin Level 3.8 g/dL (3.5-5.0); Alkaline Phosphatase 80 U/L (39-117); Anion Gap 9 (12-20); Aspartate Amino Transferase 23 U/L (5-31); Bilirubin Total 0.3 mg/dL (0.0-1.0); Blood Urea Nitrogen 17 mg/dL (9-16); Calcium 9.5 mg/dL (8.4-10.2); Carbon Dioxide 29 mmol/L (22-29); Chloride 107 mmol/L (96-108); Cholesterol 287 mg/dL (<200); Estimated Glomerular Filt Rate > 60; Glucose Fasting 93 mg/dL (60-99); HDL Cholesterol 68 mg/dL (>40); LDL Cholesterol Calculated 204 mg/dL (<100); Potassium 4.6 mmol/L (3.3-5.1); Sodium 140 mmol/L (135-145); Total Protein 6.8 g/dL (6.5-8.0); Triglycerides 76 mg/dL (<150)
== END 2024-04-29 07:25 | disposition home or self-care (01) ==
LOC: HO.LAB 07:24
PROVIDERS: PCP Physician Assistant; Visit Provider Physician Assistant
DX: Z13.1 Encounter for screening for diabetes mellitus (principal); E78.2 Mixed hyperlipidemia
CPT/HCPCS: 36415; 80053; 80061; 85027

== ENCOUNTER 2024-09-08 08:05 | Outpatient (AMB) | payer OTHER, SELFPAY ==
--- NOTE | 2024-09-08 08:08 | A.OFFVIS_ITS ---
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 She is doing well with gynaecological oncologist concerns: Currently sexually active, admits to vaginal dryness and burning. STI testing offered; she declines. Attempting to eat a healthy diet with calcium and vitamin D and stays active with exercise. Hysterectomy due to fibroids. Last mammogram; 09/2022, reluctant to have a screening due to personal reasons. Unsure if colonoscopy is UTD. Denies any family history of breast, ovarian or colon cancer. PFSH Medical History Myopia Surgical History History of excision of mass (03/04/23) Hx of section H/O: hysterectomy Family History Father Lung cancer Son Osteosarcoma Social History Household Members: Spouse Housing: Apartment Alcohol intake: never Patient Tobacco Use Status: Never used Tobacco e-Cigarette/Vaping Use: Never Used Second Hand Smoke Exposure: No service: No Current occupational status: employed Current occupation: [employer] Sexual orientation: Straight/Heterosexual Gender identity: Female Cognitive needs: No Hearing needs: No Vision needs: Yes Female Reproductive History Menstrual Menopause type: surgical Total pregnancies: 3 Full term: 2 Number of Living Children: 2 Date of last pap smear: 01/07/08 Date of Mammogram: 05/23/22 (Birad 1) Review of Systems Const All systems reviewed & are unremarkable except as noted in HPI and below Reports as per HPI Eyes Reports no additional complaints ENT Reports no additional complaints Card Reports no additional complaints Resp Reports no additional complaints GI Reports as per HPI and Reports no additional complaints Reports as per HPI Musc Reports no additional complaints Skin/Breast Reports as per HPI Neuro Reports no additional complaints Psych Reports no additional complaints Endo Reports no additional complaints Volodymyr/Lymph Reports no additional complaints Aller/Immun Reports no additional complaints Physical Exam Vital Signs: Last Vital Signs BP 100/60 09/08/24 08:10 BMI result Body Mass Index 27.4 Const General: cooperative, healthy appearing, no acute distress, well developed and alert Orientation/consciousness: patient oriented x3 HEENT Head: Yes normal to inspection Eyes General: appearance normal, both eyes and all related structures Neck Neck: Yes normal visual inspection Thyroid: Thyroid normal Chest Chest palpation & inspection: normal inspection of the chest and other (no puckering, dimpling, peau de orange, retraction, discharge, masses) Breast/axilla inspection: normal inspection of the breasts Breast/axilla palpation: normal palpation of the breasts Resp Effort & Inspection: normal respiratory effort GI Inspection: Yes scar Palpation (GI): Soft to palpation Rectal Exam - Female: deferred General: Yes bladder normal to palpation External Female Exam: normal external appearance and normal appearance of the urethra Speculum Exam - Vagina: vagina atrophic Speculum Exam - Cervix: Cervix absent (Vaginal cuff no lesions or nodules) Bimanual exam- vagina & uterus: bladder normal to palpation and uterus absent Bimanual Exam- Adnexa, other: no masses Skin General skin exam: no rashes or lesions noted Rashes: no rashes Neuro General: patient oriented x3 Cognition (Neuro): normal cognition Extrem General: Yes normal to inspection Psych Attitude: cooperative Thought process: Normal thought process present Assessment & Plan Assessment & Plan (1) Encounter for well woman exam with routine gynecological exam: Code(s): Z01.419 - Encounter for gynecological examination (general) (routine) without abnormal findings Category: Medical Plan Discussed: Current recommendations for pap smears per ASCCP guidelines. Breast awareness, periodic self breast exams and yearly mammogram. Counseled regarding the reasons for a mammogram screening for early detection of breast cancer, early treatment. Delay of diagnoses can lead to difficult treatment options and potential limiting life span and quality. Mammogram ordered, she is considering booking an appointment. Discuss with PCP when colonoscopy is due. Replens moisturizer, purpose, use and frequency. Maintain a healthy lifestyle, well balanced diet including Calcium 1,200 mg and Vitamin D 600 IU daily, and routine exercise. Patient verbalizes understanding and agrees to the plan of care. She was given opportunity to ask questions and all questions were answered to the best of my ability. RTO in 1 year for annual gynaecological oncologist exam. This note is constructed using voice recognition software. While every effort has been made to ensure accuracy, instrument technician errors may have been included. Orders: Orders MM tomosynthesis screening BI Today Z12.31 - Encounter for screening mammogram for malignant neoplasm of breast Coding Level of Care Code Est Pt Prev Care 40-64y(22886) Diagnoses Encounter for well woman exam with routine gynecological exam Z01.419
[2024-09-08 08:10] VITALS: BP 100/60; BMI 27.4
--- OUTSIDE RECORDS SUMMARY | 2024-09-08 08:11 | XMS_ITS ---
Author Organization 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 Generated for Printi irving/Kobe/eTransmitting on:?09/08/2024 08:11 AM EDT
--- OUTSIDE RECORDS SUMMARY | 2024-09-08 08:11 | XMS_ITS | Patient Health Record ---
Author Organization [facility] Address [address] [place] [address] Care Team Providers Care Director Clinical Research Name Role Phone Virgilio Carver Primary Care Provider UnavailAngie Pineda Unavailable [phone] Allergies Allergen (clinical drug ingredient) Drug/Non Drug Allergy documented on EMR Reaction Allergy Type Onset Date Status Seasonale Unknown Drug Allergy Active Reason For Referral No Information Social History Tobacco Use: Social History Observation Description Date Details (start date - stop date) Never Smoker NA - NA Tobacco use other than smoking: Question Answer Notes Are you an other tobacco user? No Tobacco Control (Standard) Question Answer Notes Tobacco use: Nonsmoker AUDIT-C (Standard) Question Answer Notes Did you have a drink containing alcohol in the p ast year? No Points 0 Interpretation Negative Encounters Encounter Location Date Provider Diagnosis [facility] [address] [place] [address] 08/02/2024 Angie Vela Plan Of Treatment Next Appt Details Provider Name:Angie mims, 09/30/2024 08:30:00 AM, [address] [facility], [place], [address], Insurance Providers Payer Name Payer Address Payer Phone Subscriber Number Group Number Insured Name Patient Relationship to Insured Coverage Start Date Coverage End Date R [address] [address] [place] [address] [id number] Amanda Alan Self - patient is the insured
== END 2024-09-08 08:45 | disposition home or self-care (01) ==
LOC: HO.HWS 08:05
PROVIDERS: PCP Physician Assistant; Visit Provider Advanced Practice Midwife
DX: Z01.419 Encounter for gynecological examination (general) (routine) without abnormal findings (principal)
CPT/HCPCS: 99396; 99459

== ENCOUNTER → 2024-09-08 08:05 | Outpatient (BNVA) | payer OTHER, SELFPAY | PROVIDERS: PCP Physician Assistant; Visit Provider Advanced Practice Midwife ==